=== PATIENT | female | born 1980 | race Caucasian/White ===

== ENCOUNTER 2020-10-07 09:01 | Emergency (ER) | payer OTHER ==
[~2020-10-07 09:01] MED LIST: CELEBREX100 MG PO; CLARITIN10 MG PO; COLACE100 MG PO; DOSS PO; IBUPROFEN600 MG PO; MIDOL CAPLET1 EAC1 PO; NORCO 5-325 TA1 EACH PO; NORCO 7.5-3251 EACH PO
[2020-10-07 09:35] LABS: HEMOGLOBIN 15.3 gm/dl (12.3-15.3); RED BLOOD COUNT 4.83 M/UL (4.00-5.10); WHITE BLOOD COUNT 9.9 K/UL (4.5-11.0)
[2020-10-07 10:15] LABS: BUN/CREATININE RATIO 18 (0-10)
[2020-10-07] MEDS ORDERED: ZOFRAN ODT 4 MG4 MG PO ×2 (10:52→10:57)
== END 2020-10-07 11:15 | disposition home or self-care (01) ==
LOC: ER1 09:01
PROVIDERS: Family Medicine
DX: R10.9 Unspecified abdominal pain (principal); R11.0 Nausea; Z90.49 Acquired absence of other specified parts of digestive tract; Z79.899 Other long term (current) drug therapy
CPT/HCPCS: 80053; 80307; 81001; 83690; 84703; 85025; 96374; 96375; 99284; J1885; J2405; Q9967